=== PATIENT | female | born 1950 | race Caucasian/White ===

== ENCOUNTER → 2018-03-31 | Outpatient (CLI) | payer MEDICARE, OTHER ==
[~2018-03-31] MED LIST: Citalopram10 MG/5 ML; FISH OIL 500 M1 EAC1 PO; HYDCHL25 PO; HYOS.125 SL; LORA1 PO; Lisinopril2.5 MG; Omeprazole20 M1 PO; PRAV20 PO; SIMV5; Synthroid150 MCG PO; Trazodone HCl300 MG PO; VENL25; ZOLP5
== END | disposition home or self-care (01) ==
LOC: LAB EV 08:30
DX: R19.7 Diarrhea, unspecified (principal)
CPT/HCPCS: 87493

== ENCOUNTER → 2018-08-18 | Outpatient (CLI) | payer MEDICARE, OTHER ==
[2018-08-18 13:38] LABS: Source, Urine Clean Catch
[2018-08-18 14:06] LABS: Bilirubin, Urine Neg (Neg); Blood, Urine 1+ (Neg); Glucose Qualitative, Urine Neg (Neg); Ketones, Urine Neg (Neg); Leukocyte Esterase, Urine 2+ (Neg); Nitrite, Urine Neg (Neg); Protein, Urine 1+ (Neg); Urobilinogen, Urine NORM (Normal)
[2018-08-18 14:40] LABS: Appearance, Urine Clear (Clear); Color, Urine Yellow (P-Yellow)
[2018-08-18 15:31] LABS: Red Blood Cells, Urine Rare /hpf (0-2)
[2018-08-18 15:32] LABS: Bacteria Few /hpf; Mucus Light (0-Heavy); Squamous Epithelial Cells Rare /hpf (Few)
== END | disposition home or self-care (01) ==
LOC: LAB 13:36 → LAB SHORT 13:36
PROVIDERS: Radiology Radiation Oncology
DX: R30.0 Dysuria (principal)
CPT/HCPCS: 81001; 87086

== ENCOUNTER → 2018-08-19 | Outpatient (CLI) | payer MEDICARE, OTHER | END | disposition home or self-care (01) | LOC: LAB EV 10:18 | DX: R19.7 Diarrhea, unspecified (principal) | CPT/HCPCS: 87493 ==

== ENCOUNTER 2020-06-26 06:56 | Day surgery (SDC) | payer MEDICARE, OTHER ==
[~2020-06-26] VITALS: Ht 165.1 cm; Wt 87.3 kg
== END 2020-06-26 09:27 | disposition home or self-care (01) ==
LOC: ORSCSDS 06:56
PROC: 0DBG8ZX Excision of Left Large Intestine, Via Natural or Artificial Opening Endoscopic, Diagnostic (ICD-10-PCS; principal; 2020-06-26)
PROC: 0DBP8ZX Excision of Rectum, Via Natural or Artificial Opening Endoscopic, Diagnostic (ICD-10-PCS; principal; 2020-06-26)
PROC: 0DBF8ZX Excision of Right Large Intestine, Via Natural or Artificial Opening Endoscopic, Diagnostic (ICD-10-PCS; principal; 2020-06-26)
PROC: 0D5P8ZZ Destruction of Rectum, Via Natural or Artificial Opening Endoscopic (ICD-10-PCS; principal; 2020-06-26)
DX: K62.5 Hemorrhage of anus and rectum (principal); R19.7 Diarrhea, unspecified; K64.8 Other hemorrhoids; K62.7 Radiation proctitis; I10 Essential (primary) hypertension; K57.30 Diverticulosis of large intestine without perforation or abscess without bleeding; Z87.891 Personal history of nicotine dependence; E66.01 Morbid (severe) obesity due to excess calories; Z68.33 Body mass index [BMI] 33.0-33.9, adult; Z79.899 Other long term (current) drug therapy
CPT/HCPCS: 88305; J0461; J2405; J2704; J7120